=== PATIENT | male | born 1980 | race Caucasian/White ===

== ENCOUNTER 2019-05-06 13:04 | Emergency (ER) | payer BC, MEDICAID ==
--- NOTE | 2019-05-06 13:33 | EDM.PDOC ---
ED HPI GENERAL MEDICAL PROBLEM - General Chief Complaint: General Stated Complaint: ALCOHOL WITHDRAWAL Time Seen by Provider: 05/06/19 13:32 - History of Present Illness INITIAL COMMENTS - FREE TEXT/NARRATIVE: 39-year-old male presents to the emergency room emergency room for assistance to stop drinking. The patient was doing really well he was off alcohol for about a month after spending some time and [facility]. However started drinking again he's been drinking heavily since Saturday. He states that he is drinking up to half a gallon of vodka a day. He has not had anything to drink today. He generally just doesn't feel too good but denies any specific pain. He would like to get back [facility]. Generalized Pain Score (Numeric/FACES): 5 - Related Data Allergies Allergy/AdvReac Type Severity Reaction Status Date / Time No Known Allergies Allergy Verified 05/06/19 13:23 Home Meds: Home Meds LORazepam [Ativan] 1 mg PO Q8H #12 tab 05/06/19 [Rx] Ondansetron [Zofran ODT] 4 mg PO Q6H #4 tab.dis 05/06/19 [Rx] ED ROS GENERAL - Review of Systems Review Of Systems: See Below Constitutional: Reports: No Symptoms HEENT: Reports: No Symptoms Respiratory: Reports: No Symptoms Cardiovascular: Reports: No Symptoms Endocrine: Reports: No Symptoms GI/Abdominal: Reports: Nausea, Other (He has some upset stomach). Denies: Abdominal Pain, Constipation, Diarrhea, Vomiting : Reports: No Symptoms Musculoskeletal: Reports: No Symptoms Skin: Reports: No Symptoms Neurological: Reports: Headache (Mild) Psychiatric: Reports: Anxiety (He is extremely anxious) ED EXAM, GENERAL - Physical Exam Exam: See Below Exam Limited By: No Limitations General Appearance: Alert, Moderate Distress (From his anxiety) Eye Exam: Bilateral Eye: Normal Inspection Ears: Normal External Exam, Normal Canal, Hearing Grossly Normal, Normal TMs Nose: Normal Inspection, Normal Mucosa, No Blood Throat/Mouth: Normal Inspection, Normal Lips, Normal Teeth, Normal Gums, Normal Oropharynx, Normal Voice, No Airway Compromise Head: Atraumatic, Normocephalic Neck: Normal Inspection, Supple, Non-Tender, Full Range of Motion. No: Lymphadenopathy (L), Lymphadenopathy (R) Respiratory/Chest: No Respiratory Distress, Lungs Clear, Normal Breath Sounds Cardiovascular: Regular Rate, Rhythm, No Edema, No Murmur GI/Abdominal: Normal Bowel Sounds, Soft, Non-Tender Back Exam: Normal Inspection. No: CVA Tenderness (L), CVA Tenderness (R) Extremities: Normal Inspection, No Pedal Edema Neurological: Alert, Oriented, Normal Cognition Course - Vital Signs Last Recorded V/S: Last Vital Signs Temp 36.8 C 05/06/19 13:24 Pulse 100 05/06/19 13:24 Resp 18 05/06/19 13:24 BP 150/94 H 05/06/19 13:24 Pulse Ox 97 05/06/19 13:24 - Orders/Labs/Meds Labs: Laboratory Tests 05/06/19 05/06/19 05/06/19 Range/Units 14:14 14:14 14:14 WBC 7.43 (4.23-9.07) K/mm3 RBC 4.43 L (4.63-6.08) M/mm3 Hgb 13.3 L (13.7-17.5) gm/dl Hct 37.4 L (40.1-51.0) % MCV 84.4 (79.0-92.2) fl MCH 30.0 (25.7-32.2) pg MCHC 35.6 H (32.2-35.5) g/dl RDW Std Deviation 37.2 (35.1-43.9) fL Plt Count 161 L (163-337) K/mm3 MPV 8.7 L (9.4-12.3) fl Neutrophils % (Manual) 58 (40-60) % Band Neutrophils % 0 (0-10) % Lymphocytes % (Manual) 33 (20-40) % Atypical Lymphs % 0 % Monocytes % (Manual) 8 (2-10) % Eosinophils % (Manual) 0 L (0.8-7.0) % Basophils % (Manual) 1 (0.2-1.2) Platelet Estimate Adequate Plt Morphology Comment Normal RBC Morph Comment Normal PT 12.0 (9.7-12.0) SECONDS INR 1.11 Sodium 135 L (136-145) mEq/L Potassium 3.5 (3.5-5.1) mEq/L Chloride 95 L (98-107) mEq/L Carbon Dioxide 30 (21-32) mEq/L Anion Gap 13.5 (5-15) BUN 10 (7-18) mg/dL Creatinine 0.9 (0.7-1.3) mg/dL Est Cr Clr Drug Dosing 112.65 mL/min Estimated GFR (MDRD) > 60 (>60) mL/min BUN/Creatinine Ratio 11.1 L (14-18) Glucose 130 H (74-106) mg/dL Calcium 9.1 (8.5-10.1) mg/dL Total Bilirubin 3.9 H (0.2-1.0) mg/dL AST 43 H (15-37) U/L ALT 59 (16-63) U/L Alkaline Phosphatase 100 (46-116) U/L Total Protein 8.2 (6.4-8.2) g/dl Albumin 4.4 (3.4-5.0) g/dl Globulin 3.8 gm/dL Albumin/Globulin Ratio 1.2 (1-2) TSH 3rd Generation 2.344 (0.358-3.74) uIU/mL Urine Color (Yellow) Urine Appearance (Clear) Urine pH (5.0-8.0) Ur Specific Kimball (1.005-1.030) Urine Protein (Negative) Urine Glucose (UA) (Negative) Urine Ketones (Negative) Urine Occult Blood (Negative) Urine Nitrite (Negative) Urine Bilirubin (Negative) Urine Urobilinogen (0.2-1.0) Ur Leukocyte Esterase (Negative) Urine RBC (0-5) /hpf Urine WBC (0-5) /hpf Ur Squamous Epith Cells (0-5) /hpf Urine Bacteria (FEW) /hpf Urine Mucus (FEW) /hpf Urine Opiates Screen (UDVQGA=778) Ur Buprenorphine Scrn (CUTOFF=10) Ur Oxycodone Screen (KWH8PZ=521) Urine Methadone Screen (EEP8JW=320) Ur Propoxyphene Screen (IYTMPS=674) Ur Barbiturates Screen (LQZMGW=073) Ur Tricyclics Screen (OPBFUB=798) Ur Phencyclidine Scrn (CUTOFF=25) Ur Amphetamine Screen (WEVNNY=597) U Methamphetamines Scrn (BRNCCI=874) U Benzodiazepines Scrn (UNVFTB=493) U Cocaine Metab Screen (NZMMUJ=753) U Marijuana (THC) Screen (CUTOFF=50) Ethyl Alcohol 0.00 (0.00) gm% 05/06/19 05/06/19 Range/Units 17:15 17:15 WBC (4.23-9.07) K/mm3 RBC (4.63-6.08) M/mm3 Hgb (13.7-17.5) gm/dl Hct (40.1-51.0) % MCV (79.0-92.2) fl MCH (25.7-32.2) pg MCHC (32.2-35.5) g/dl RDW Std Deviation (35.1-43.9) fL Plt Count (163-337) K/mm3 MPV (9.4-12.3) fl Neutrophils % (Manual) (40-60) % Band Neutrophils % (0-10) % Lymphocytes % (Manual) (20-40) % Atypical Lymphs % % Monocytes % (Manual) (2-10) % Eosinophils % (Manual) (0.8-7.0) % Basophils % (Manual) (0.2-1.2) Platelet Estimate Plt Morphology Comment RBC Morph Comment PT (9.7-12.0) SECONDS INR Sodium (136-145) mEq/L Potassium (3.5-5.1) mEq/L Chloride (98-107) mEq/L Carbon Dioxide (21-32) mEq/L Anion Gap (5-15) BUN (7-18) mg/dL Creatinine (0.7-1.3) mg/dL Est Cr Clr Drug Dosing mL/min Estimated GFR (MDRD) (>60) mL/min BUN/Creatinine Ratio (14-18) Glucose (74-106) mg/dL Calcium (8.5-10.1) mg/dL Total Bilirubin (0.2-1.0) mg/dL AST (15-37) U/L ALT (16-63) U/L Alkaline Phosphatase (46-116) U/L Total Protein (6.4-8.2) g/dl Albumin (3.4-5.0) g/dl Globulin gm/dL Albumin/Globulin Ratio (1-2) TSH 3rd Generation (0.358-3.74) uIU/mL Urine Color Yellow (Yellow) Urine Appearance Clear (Clear) Urine pH 7.0 (5.0-8.0) Ur Specific Kimball 1.015 (1.005-1.030) Urine Protein Trace H (Negative) Urine Glucose (UA) Trace H (Negative) Urine Ketones Negative (Negative) Urine Occult Blood Negative (Negative) Urine Nitrite Negative (Negative) Urine Bilirubin Negative (Negative) Urine Urobilinogen 0.2 (0.2-1.0) Ur Leukocyte Esterase Negative (Negative) Urine RBC 0-5 (0-5) /hpf Urine WBC 0-5 (0-5) /hpf Ur Squamous Epith Cells 0-5 (0-5) /hpf Urine Bacteria Not seen (FEW) /hpf Urine Mucus Not seen (FEW) /hpf Urine Opiates Screen Negative (NABOMI=725) Ur Buprenorphine Scrn Negative (CUTOFF=10) Ur Oxycodone Screen Negative (EHD6TB=785) Urine Methadone Screen Negative (UPV5CQ=014) Ur Propoxyphene Screen Negative (WKXNLS=367) Ur Barbiturates Screen Negative (YOAYZW=583) Ur Tricyclics Screen Negative (CSAEOP=771) Ur Phencyclidine Scrn Negative (CUTOFF=25) Ur Amphetamine Screen Negative (JITZAC=970) U Methamphetamines Scrn Negative (MZNWOE=437) U Benzodiazepines Scrn Negative (MXEZHQ=352) U Cocaine Metab Screen Negative (XZGAWX=446) U Marijuana (THC) Screen Negative (CUTOFF=50) Ethyl Alcohol (0.00) gm% Meds: Medications Discontinued Medications Generic Name Dose Route Start Last Admin Trade Name Lisbet PRN Reason Stop Dose Admin Lorazepam 2 mg 05/06/19 14:00 05/06/19 14:13 Ativan PO 05/06/19 14:01 2 mg ONETIME ONE Administration Lorazepam 2 mg 05/06/19 19:27 05/06/19 19:34 Ativan PO 05/06/19 19:28 2 mg ONETIME ONE Administration Lorazepam Confirm 05/06/19 19:28 Ativan Administered 05/06/19 19:29 Dose 2 mg .ROUTE .STK-MED ONE - Re-Assessments/Exams Free Text/Narrative Re-Assessment/Exam: 05/06/19 17:11 Alcohol is negative labs non-concerning thus far still waiting on urinating urine drug screen and tox the patient is doing much better after receiving the Ativan much more relaxed he can go anywhere until we get the urine done but it is my understanding the [facility] will take him as soon as his workup is done 05/06/19 18:48 Patient's workup is done we will discharge him with Ativan 1 mg 3 times a day for 4 days and Zofran 4 mg every 6 hours for 1 days. [facility] will pick him up Departure - Departure Time of Disposition: 18:49 Disposition: Home, Self-Care 01 Clinical Impression: Alcohol withdrawal syndrome, Alcohol abuse - Discharge Information Prescriptions: LORazepam [Ativan] 1 mg PO Q8H #12 tab Ondansetron [Zofran ODT] 4 mg PO Q6H #4 tab.dis Instructions: Alcohol Withdrawal Syndrome, [id number] Referrals: PCP,None [Primary Care Provider] - Forms: ED Department Discharge Additional Instructions: Return to emergency room if any questions problems or worsening symptoms. [facility] will take you to their facility. You've been given prescriptions for Ativan for 4 days and Zofran to prevent nausea for one day Sepsis Event Note - Evaluation Sepsis Screening Result: No Definite Risk - Focused Exam Vital Signs: Vital Signs Temp Pulse Resp BP Pulse Ox 05/06/19 13:24 36.8 C 100 18 150/94 H 97 Date Exam was Performed: 05/06/19 Time Exam was Performed: 19:45
[2019-05-06] MEDS ORDERED: LORazepam 1 MG Tab PO ONE ×2 (14:00→19:27)
[2019-05-06] MEDS ORDERED: LORazepam 1 MG Tab ONE (19:28)
== END 2019-05-06 20:14 | disposition home or self-care (01) ==
LOC: JD.ED 13:04
DX: F10.239 Alcohol dependence with withdrawal, unspecified (principal); F41.9 Anxiety disorder, unspecified; Z79.899 Other long term (current) drug therapy
CPT/HCPCS: 36415; 80053; 80306; 80320; 81001; 84443; 85007; 85027; 85610; 99284; A9270; 99283; G0480

== ENCOUNTER 2020-02-14 18:59 | Emergency (ER) | payer MEDICAID ==
--- NOTE | 2020-02-14 20:19 | CR ---
Chest: Portable view of the chest was obtained. Comparison: No previous chest x-ray. Patchy areas of increased density of left mid and lower lung as well as within the right upper lung and right midlung. Heart size and mediastinum are normal. Bony structures are grossly intact. Impression: 1. Multiple areas of increased density as described above. Findings most likely due to pneumonia. Differential includes viral as well as less likely bacterial pneumonia. Please correlate if patient is Covid 19 positive. Diagnostic code #5 This report was dictated in MDT
--- NOTE | 2020-02-14 20:38 | EDM.PDOC ---
<Rosa Patel - Last Filed: 02/14/20 21:30> ED HPI GENERAL MEDICAL PROBLEM - General Chief Complaint: Respiratory Problem Stated Complaint: possibble covid sob and exposed to covid positive Time Seen by Provider: 02/14/20 19:30 Source of Information: Reports: Patient History Limitations: Reports: No Limitations - History of Present Illness INITIAL COMMENTS - FREE TEXT/NARRATIVE: Patient is a 40-year-old male presenting to the emergency department with complaints of body aches, chills, cough, absence of taste and smell, fatigue and shortness of breath on exertion. Patient states that symptoms began 1 week ago today. Initially began with intermittent body aches and chills. Throughout this entire. He has had an occasional cough as well. States that about 5 days ago he lost his taste and smell. Today he noticed that when he was trying to climb into a truck he got somewhat short of breath. He denies any underlying lung or cardiac conditions, states his "liver is not so great ". He has been using [id number] ibuprofen as needed for body aches. He denies any abdominal pain, nausea, vomiting, or diarrhea. Lower Back Pain Score (Numeric/FACES): 5 - Related Data Allergies Allergy/AdvReac Type Severity Reaction Status Date / Time No Known Allergies Allergy Verified 02/14/20 19:09 Home Meds: Home Meds . [No Known Home Meds] 02/14/20 [History] Past Medical History - Past Health History Medical/Surgical History: Denies Medical/Surgical History Neurological History: Reports: Seizure Other Neuro History: Alcohol detox related seizures Psychiatric History: Reports: Addiction, Other (See Below) Other Psychiatric History: etoh abuse - Infectious Disease History Infectious Disease History: Reports: MRSA - Past Surgical History GI Surgical History: Reports: Cholecystectomy Other GI Surgeries/Procedures: Drained liver abcess Musculoskeletal Surgical History: Reports: Other (See Below) Other Musculoskeletal Surgeries/Procedures:: MCL repair Social & Family History - Tobacco Use Smoking Status *Q: Current Every Day Smoker Years of Tobacco use: 20 Packs/Tins Daily: 0.1 - Caffeine Use Caffeine Use: Reports: Coffee, Soda - Recreational Drug Use Recreational Drug Use: No ED ROS GENERAL - Review of Systems Review Of Systems: See Below Constitutional: Reports: Chills, Fatigue HEENT: Reports: No Symptoms Respiratory: Reports: Shortness of Breath, Cough Cardiovascular: Reports: Dyspnea on Exertion. Denies: Syncope Endocrine: Reports: No Symptoms GI/Abdominal: Reports: No Symptoms : Reports: No Symptoms Musculoskeletal: Reports: Other (Generalized body aches) Skin: Reports: No Symptoms Neurological: Reports: No Symptoms. Denies: Dizziness, Headache Psychiatric: Reports: No Symptoms Hematologic/Lymphatic: Reports: No Symptoms Immunologic: Reports: No Symptoms ED EXAM, GENERAL - Physical Exam Exam: See Below General Appearance: Alert, WD/WN, No Apparent Distress Respiratory/Chest: No Respiratory Distress, Lungs Clear, Normal Breath Sounds, No Accessory Muscle Use, Chest Non-Tender Cardiovascular: Normal Peripheral Pulses, Regular Rate, Rhythm, No Edema, No Gallop, No JVD, No Murmur, No Rub GI/Abdominal: Normal Bowel Sounds, Soft, Non-Tender, No Organomegaly, No Distention, No Abnormal Bruit, No Mass Neurological: Alert, Oriented, CN II-XII Intact, Normal Cognition, Normal Gait, Normal Reflexes, No Motor/Sensory Deficits Psychiatric: Normal Affect, Normal Mood Skin Exam: Warm, Dry, Intact, Normal Color, No Rash Course - Re-Assessments/Exams Free Text/Narrative Re-Assessment/Exam: Patient is a 40-year-old male presenting to the emergency department with complaints of intermittent body aches, chills, cough, loss of taste and smell, as well as some shortness of breath with exertion. He denies any chronic lung or heart conditions. His description of symptoms are highly suspicious for COVID-19. I have ordered a chest x-ray, CBC, CMP, CRP, d-dimer, ferritin, LDH, and a coronavirus test. 02/14/20 21:30 Impression of patient's chest x-ray is as follows: Multiple areas of increased density as above. Findings most likely due to pneumonia. Differential includes viral as well as less likely bacterial infection. Please correlate with the patient is COVID-19 positive. Hematology was significant for WBC slightly low at 3.9, hemoglobin 12.3, sodium 132, chloride 97, AST 121, ALT 74, alkaline phosphatase 298, lactated dehydrogenase 411, CRP 13.1. Patient's coronavirus test is a state send out, therefore results will likely be available in 24 to 48 hours. Based on the results of his work-up, however, I feel it is highly likely that he is suffering from Covid19. Oxygen saturations have maintained at 96 to 100% on room air throughout his stay in the ER. His lung sounds are clear to auscultation. We will discharge him home with symptomatic treatment as well as return precautions. Discharge instructions as documented. Departure - Departure Time of Disposition: 21:34 Disposition: Home, Self-Care 01 Condition: Good Clinical Impression: Generalized body aches, Decreased taste and smell, Dyspnea on exertion Pneumonia Qualifiers: Pneumonia type: due to unspecified organism Laterality: bilateral Lung location: unspecified part of lung Qualified Code(s): J18.9 - Pneumonia, unspecified organism Fatigue Qualifiers: Fatigue type: unspecified Qualified Code(s): R53.83 - Other fatigue - Discharge Information *PRESCRIPTION DRUG MONITORING PROGRAM REVIEWED*: No *COPY OF PRESCRIPTION DRUG MONITORING REPORT IN PATIENT MIKE: No Instructions: Acute Pain, Adult Referrals: PCP,None [Primary Care Provider] - Forms: ED Department Discharge Additional Instructions: You were seen in the emergency department this evening for 1 week history of chills, fatigue, cough, loss of taste and smell, body aches, and most recently shortness of breath on exertion. Your work-up included a chest x-ray, blood work, and a coronavirus test. Your chest x-ray does show that you has some scattered areas of pneumonia likely viral in origin which would support a diagnosis of COVID-19. The results your blood work are also suspicious for diagnosis of COVID-19. Your d-dimer was negative indicating that you do not have blood clots in your lungs. Your oxygen saturation has maintained 96 to 100% on room air which is excellent. Results of your coronavirus test will not be available for 24 to 48 hours, however you will be notified with these. As we discussed, based on the results of your exam, I feel that it is highly likely that you do have COVID-19. At this time you are doing quite well. Oxygen saturations were excellent. Recommend that you purchase a home pulse oximeter to monitor your oxygen saturations at home. If you are find that you are maintaining an oxygen saturation of 90 or below, that would warrant return to the emergency department. Recommend that you ensure adequate intake of fluids. You may continue to use [id number] Tylenol or ibuprofen as needed for fever and discomfort. Be mindful of your symptoms and return to the ER for any new or worsening symptoms of concern. Sepsis Event Note (ED) - Evaluation Sepsis Screening Result: No Definite Risk <Yasmany Ocampo - Last Filed: 02/16/20 10:20> Course - Vital Signs Last Recorded V/S: Last Vital Signs Temp 98.7 F 02/14/20 20:48 Pulse 90 02/14/20 20:48 Resp 16 02/14/20 20:48 BP 131/75 02/14/20 20:48 Pulse Ox 98 02/14/20 20:48 - Orders/Labs/Meds Labs: Laboratory Tests 02/14/20 02/14/20 02/14/20 Range/Units 20:37 20:37 20:37 WBC 3.90 L (4.23-9.07) K/mm3 RBC 4.01 L (4.63-6.08) M/mm3 Hgb 12.3 L (13.7-17.5) gm/dl Hct 37.2 L (40.1-51.0) % MCV 92.8 H D (79.0-92.2) fl MCH 30.7 (25.7-32.2) pg MCHC 33.1 (32.2-35.5) g/dl RDW Std Deviation 42.5 (35.1-43.9) fL Plt Count 184 (163-337) K/mm3 MPV 9.0 L (9.4-12.3) fl Neut % (Auto) 70.5 H (34.0-67.9) % Lymph % (Auto) 17.4 L (21.8-53.1) % Quay % (Auto) 10.8 (5.3-12.2) % Eos % (Auto) 1.0 (0.8-7.0) Baso % (Auto) 0.3 (0.1-1.2) % Neut # (Auto) 2.75 (1.78-5.38) K/mm3 Lymph # (Auto) 0.68 L (1.32-3.57) K/mm3 Quay # (Auto) 0.42 (0.30-0.82) K/mm3 Eos # (Auto) 0.04 (0.04-0.54) K/mm3 Baso # (Auto) 0.01 (0.01-0.08) K/mm3 D-Dimer, Quantitative 0.39 (0.19-0.50) mg/L Sodium 132 L (136-145) mEq/L Potassium 3.8 (3.5-5.1) mEq/L Chloride 97 L (98-107) mEq/L Carbon Dioxide 28 (21-32) mEq/L Anion Gap 10.8 (5-15) BUN 8 (7-18) mg/dL Creatinine 0.9 (0.7-1.3) mg/dL Est Cr Clr Drug Dosing 111.53 mL/min Estimated GFR (MDRD) > 60 (>60) mL/min BUN/Creatinine Ratio 8.9 L (14-18) Glucose 86 (74-106) mg/dL Calcium 8.3 L (8.5-10.1) mg/dL Ferritin (26-388) ng/ml Total Bilirubin 0.9 (0.2-1.0) mg/dL AST 121 H (15-37) U/L ALT 74 H (16-63) U/L Alkaline Phosphatase 298 H (46-116) U/L Lactate Dehydrogenase 411 H (85-227) U/L C-Reactive Protein 13.2 H* (<1.0) mg/dL Total Protein 7.3 (6.4-8.2) g/dl Albumin 3.2 L (3.4-5.0) g/dl Globulin 4.1 gm/dL Albumin/Globulin Ratio 0.8 L (1-2) SARS-CoV-2 (PCR) (NOT DETECT) 02/14/20 02/14/20 Range/Units 20:37 20:49 WBC (4.23-9.07) K/mm3 RBC (4.63-6.08) M/mm3 Hgb (13.7-17.5) gm/dl Hct (40.1-51.0) % MCV (79.0-92.2) fl MCH (25.7-32.2) pg MCHC (32.2-35.5) g/dl RDW Std Deviation (35.1-43.9) fL Plt Count (163-337) K/mm3 MPV (9.4-12.3) fl Neut % (Auto) (34.0-67.9) % Lymph % (Auto) (21.8-53.1) % Quay % (Auto) (5.3-12.2) % Eos % (Auto) (0.8-7.0) Baso % (Auto) (0.1-1.2) % Neut # (Auto) (1.78-5.38) K/mm3 Lymph # (Auto) (1.32-3.57) K/mm3 Quay # (Auto) (0.30-0.82) K/mm3 Eos # (Auto) (0.04-0.54) K/mm3 Baso # (Auto) (0.01-0.08) K/mm3 D-Dimer, Quantitative (0.19-0.50) mg/L Sodium (136-145) mEq/L Potassium (3.5-5.1) mEq/L Chloride (98-107) mEq/L Carbon Dioxide (21-32) mEq/L Anion Gap (5-15) BUN (7-18) mg/dL Creatinine (0.7-1.3) mg/dL Est Cr Clr Drug Dosing mL/min Estimated GFR (MDRD) (>60) mL/min BUN/Creatinine Ratio (14-18) Glucose (74-106) mg/dL Calcium (8.5-10.1) mg/dL Ferritin 302 (26-388) ng/ml Total Bilirubin (0.2-1.0) mg/dL AST (15-37) U/L ALT (16-63) U/L Alkaline Phosphatase (46-116) U/L Lactate Dehydrogenase (85-227) U/L C-Reactive Protein (<1.0) mg/dL Total Protein (6.4-8.2) g/dl Albumin (3.4-5.0) g/dl Globulin gm/dL Albumin/Globulin Ratio (1-2) SARS-CoV-2 (PCR) Detected H (NOT DETECT) - Re-Assessments/Exams Free Text/Narrative Re-Assessment/Exam: 02/16/20 10:20 COVID 19 was positive. I called to let the patient know.
== END 2020-02-14 22:00 | disposition home or self-care (01) ==
LOC: JD.ED 18:59
DX: U07.1 COVID-19 (principal); J12.89 Other viral pneumonia; R43.8 Other disturbances of smell and taste; F17.210 Nicotine dependence, cigarettes, uncomplicated
CPT/HCPCS: 36415; 71045; 71045-26; 80053; 82728; 83615; 85025; 85379; 86140; 99282; 99285-25; U0002